=== PATIENT | male | born 1955 | race Native Hawaiian/Other Pacific Islander ===

== ENCOUNTER 2018-02-02 08:47 | Day surgery (SDC) | payer OTHER ==
[2018-02-02] MEDS ORDERED: LIDOCAINE 2% MDV (20MG/ML) 20ML VIAL IV ONE (08:48)
[2018-02-02] MEDS ORDERED: MIDAZOLAM HCL 2MG/2ML VIAL IV ONE (08:48)
[2018-02-02] MEDS ORDERED: PROPOFOL 10 MG/ML VIAL IV ONE (08:48)
--- NOTE | 2018-02-04 17:40 | Operative Note ---
DATE OF SURGERY: 02/02/2018 OPERATION: COLONOSCOPY to the cecum with cold snare polypectomy x3 and cold biopsy forceps polypectomy x1. INDICATION: Colorectal cancer screening. This is the patient's first colonoscopy. ANESTHESIA: Intravenous sedation was administered by the department of anesthesiology and included Diprivan titrated to effect. PROCEDURE: Following informed consent from this alert individual including a discussion of the risks and benefits of the procedure and an opportunity for the patient to ask questions, the patient was in the left lateral decubitus position. A digital rectal examination was performed. No abnormalities were noted. Following this, the Olympus XLY426 video colonoscope was inserted into the rectum without resistance. The rectal mucosa had a normal appearance with normal folds and distensibility. The colonoscope was advanced up through the colon to the level of the cecum without much difficulty. Throughout the bowel the mucosa appeared normal, the folds were normal, and the bowel was fairly well distensible. The cecum was defined by noting the appendiceal orifice and ileocecal valve. The colon preparation as good. From the base of the cecum, the colonoscope was then slowly withdrawn. In the proximal ascending colon there was a diminutive 3 mm polyp noted along a fold which was removed with cold biopsy forceps. There were 2 sigmoid colon polyps measuring 5 and 6 mm in size each removed with cold snare polypectomy and suctioned through the colonoscope into a collection trap. There was a 4 mm rectal polyp also removed with cold snare polypectomy and recovered. Retroflexion in the rectum demonstrated small internal hemorrhoids but no evidence of bleeding. The endoscope was straightened and removed. The patient tolerated the procedure well and was returned to the recovery area in stable condition. IMPRESSION: 1. A 3 mm ascending colon polyp removed with biopsy forceps. 2. Two sigmoid colon polyps removed with cold snare polypectomy measuring 5-6 mm in size. 3. One 4 mm rectal polyp removed with cold snare polypectomy. 4. Small internal hemorrhoids. RECOMMENDATIONS: The patient was advised he should receive a copy of his pathology report at home in the next 2-3 weeks. If not, he was asked to call my office to review the results of testing today. Further recommendations forthcoming pending those results. As always, thank you for allowing me to participate in the care of your patient. CC: Dr. Brian JOEL
== END 2018-02-02 11:27 | disposition home or self-care (01) ==
LOC: HOP 08:47
PROVIDERS: ATTEND Internal Medicine Gastroenterology
DX: Z12.11 Encounter for screening for malignant neoplasm of colon (principal); D12.2 Benign neoplasm of ascending colon; D12.5 Benign neoplasm of sigmoid colon; K62.1 Rectal polyp; K64.8 Other hemorrhoids; I10 Essential (primary) hypertension; E78.00 Pure hypercholesterolemia, unspecified